=== PATIENT | male | born 1970 | race Caucasian/White ===

== ENCOUNTER 2016-05-07 09:49 | Emergency (ER) | payer BC ==
[~2016-05-07] VITALS: Ht 165.1 cm; Wt 86.6 kg
[2016-05-07 09:49] VITALS: BP 128/95
[2016-05-07] MEDS ORDERED: GUAI600T38 PO (10:15)
[2016-05-07] MEDS ORDERED: GUAI118L13 PO (10:15)
--- NOTE | 2016-05-07 10:20 | ED.ADGEN ---
Past History Past Medical History: No Pertinent History Past Surgical History: No Surgical History Alcohol Use: None Drug Use: None Adult General Chief Complaint Chief Complaint sinus headache HPI HPI Patient is a 45 year old male who presents with sinus headache, sinus congestion , sore throat and cough. Pt reports chills, denies known fevers, reports generalized body aches. Symptoms of 4 days. Initially seen by PCP. Then on seen in [place] and prescribed Doxy. Pt returns questioning why is he isn't better since he's been on antibiotics for 3 days. He's also on prednisone, ibuprofen, and once/day Zyrtec. PCP is Dr. Bolaños. Pt has pain with cough and deep inspiration. Review of Systems Review of Systems Constitutional: Denies fever Eyes: Denies change in visual acuity, redness, or eye pain [] HENT: per hpi Respiratory: Denies shortness of breath [] Cardiovascular: chest pain with cough, otherwise no pain GI: Denies abdominal pain, nausea, vomiting, bloody stools or diarrhea [] : Denies dysuria or hematuria [] Musculoskeletal: reports generalized body aches Integument: Denies rash or skin lesions [] Neurologic: reports headache, denies focal weakness or sensory changes [] Allergies Allergies Allergies Coded Allergies Type Severity Reaction Last Updated Verified No Known Drug Allergies 05/07/16 No Physical Exam Physical Exam Constitutional: Well developed, well nourished, no acute distress, ill-appearing , non-toxic appearance. sinus congested voice HENT: Normocephalic, atraumatic, bilateral external ears normal, oropharynx moist, no oral exudates, nose normal.oral phayrnx with mild erythema, no exudate , no edema, uvula midline Eyes: PERRLA, EOMI, conjunctiva normal, no discharge. [] Neck: Normal range of motion, no tenderness, supple, no stridor. no meningismus Cardiovascular:Heart rate regular at 95 with regular rhythm, no murmur [] Lungs & Thorax: Bilateral breath sounds clear to auscultation , good air movement, no wheeze or crackles Abdomen: soft, no tenderness, no masses, no pulsatile masses. [] Skin: Warm, dry, no erythema, no rash. [] Back: No tenderness, no CVA tenderness. [] Extremities: No tenderness, no cyanosis, no clubbing, ROM intact, no edema. [] Neurologic: Alert and oriented X 3, normal motor function, normal sensory function, no focal deficits noted. [] Psychologic: Affect normal, judgement normal, mood normal. [] Current Patient Data Vital Signs Vital Signs Date Time Temp Pulse Resp B/P Pulse Ox O2 Delivery O2 Flow Rate FiO2 05/07/16 09:49 99.7 106 18 98 Room Air EKG EKG [] Radiology/Procedures Radiology/Procedures [] Course & Med Decision Making Course & Med Decision Making Pertinent Labs and Imaging studies reviewed. (See chart for details) []Explained to pt he likely have a viral sinusitis, abx may not help. Flu possible, but pt is 4 days out and not Tamiflu option. Recommended rest, mucinex, codeine cough syrup for bed, continue ibuprofen and tylenol. Should continue abx since already started. F/u with PCP, return precautions given. Final Impression Final Impression Viral sinusitis with sinus headache[] Problems: Dragon Disclaimer Dragon Disclaimer This electronic medical record was generated, in whole or in part, using a voice recognition dictation system. GEO BARROW MD May 07, 2016 10:20
== END 2016-05-07 10:17 | disposition home or self-care (01) ==
LOC: ER 09:55
DX: J32.8 Other chronic sinusitis (principal); R51 Headache; M79.1 Myalgia
CPT/HCPCS: 99282